=== PATIENT | male | born 1950 | race Caucasian/White ===

== ENCOUNTER 2025-07-05 15:15 | Observation (INO) | payer OTHER, SELFPAY ==
[2025-07-05] VITALS (8 sets, daily range): BP systolic 132–160; BP diastolic 65–107; PULSE 65–66; BMI 27.3
[2025-07-05 08:47] LABS: Hematocrit 40.5 % (39.0-52.0); Hemoglobin 13.1 g/dL (13.0-18.0); Mean Corp Hgb Conc. 32.3 g/dL (33.0-37.0); Mean Corpuscular Volume 92.3 fL (80.0-94.0); Platelet Count 173 10^3/uL (130-400); Red Cell Dist. Width 13.7 % (11.5-14.5)
[2025-07-05 09:05] LABS: ALT (SGPT) 37 U/L (0-50); AST (SGOT) 33 U/L (17-59); Albumin 4.5 g/dl (3.5-5.0); Alkaline Phosphatase 53 U/L (38-126); Blood Urea Nitrogen 28 mg/dl (9-20); Calcium 9.5 mg/dl (8.4-10.2); Carbon Dioxide 22 mmol/L (22-30); Chloride 111 mmol/L (98-107); Estimated Creatinine Clearance 61 ml/min; Glucose 135 mg/dl (70-99); Potassium 4.9 mmol/L (3.5-5.1); Sodium 142 mmol/L (135-145); Total Protein 7.5 g/dl (6.3-8.2); eGFR > 60.00
--- NOTE | 2025-07-05 09:10 | ED.GENMED ---
History of Present Illness
General
Chief Complaint: Dizziness
Source: patient and spouse
Time Seen by Provider: 07/05/25 07:49
History of Present Illness
History of Present Illness:
This patient is a 75-year-old male who presents the emergency department with complaints of dizziness that he noticed when he woke up this morning. He felt perfectly well and he went to bed. He woke at approximately 6:45 AM and when he got up and
out of bed he noticed that his balance was 'off' associated with nausea and diaphoresis. This is not exacerbated or changed with turning of his head or certain positions. He does not noted now while in bed, but even just walking to his room in the
emergency department he noticed that his balance was off. He feels like he is favoring one side and leaning to the right. He is no longer diaphoretic but still feels nauseous. He denies associated numbness, tingling, change in vision, change in
speech, headache, neck pain, chest pain, palpitations, dyspnea, tinnitus, a sense of spinning, or other complaints.
Past History
Past History
ED Past Medical History: Arrthythmia, Hypercholesterolemia, Valvular disease and Other (Gout)
ED Past Surgical History: Cardiac (pacemaker)
Social History
Tobacco: Non-smoker
Alcohol: Occasional
Drug: None
Personal:
Living: with family
Employment: Retired
Phy Exam
Physical Exam
Physical Exam:
GENERAL: Alert , in no apparent distress
EYE: pupils equal and reactive, no photophobia, no nystagmus, EOMI
NECK: Supple, no significant adenopathy.
ENT: o/p clr, mmm.
CARDIAC: Regular rate and rhythm .
LUNGS: Clear breath sounds bilaterally, no acute respiratory distress, no wheezes/rales/rhonchi
ABDOMEN: Soft, without focal tenderness, no r/g, no cvat
NEUROLOGICAL: Alert and oriented, no focal neuro deficits, motor 5 out of 5, sensory intact, cranial nerves II through XII intact, [id number] normal
SKIN: Warm and dry, skin intact.
MUSCULOSKELETAL: No edema, well perfused.
PSYCH: Normal and appropriate interaction.
Course
Orders/Labs/Results
Orders:
Orders
07/05/25 07:48
Electrocardiogram (*1) Urgent
Reason for Study: Vertigo / Dizzy
EKG- Treatment ONCE
07/05/25 08:06
CT Head W/o Iv Contrast Urgent
Comment:
Reason For Exam: dizzy, n
Cardiac Monitoring- Treatment ONCE
Interrogate Pacemaker- Treatment ONCE
Pulse Ox/cont/shift [RESP] Stat
Quantity: 1
07/05/25 08:30
Complete Blood Count/No Diff Urgent
Comprehensive Metabolic Panel Urgent
Troponin I Urgent
07/05/25 10:42
CR Chest - 2 Views Urgent
Comment:
Reason For Exam: pacer eval
07/05/25 14:44
Admit/Transfer Patient As Directed
Co-Sign Provider:
Level of Care: Observation services
Assign to:: Telemetry
Physician / Group: iliana
Diagnosis: tia vs cva
Reason for Telemetry: CVA/TIA
Date to Stop Telemetry: 07/08/25
Time to Stop Telemetry: 11:00
PRN Pain Medication Management As Directed
May give lesser potent ordered pain med per pt: Yes
preference::
Protocol:: Medication orders for pain may be administered in a
manner that supports deferring to patient preference
when the pt is:
- Requesting an ordered lesser potent pain medication.
Least to most potent pain medications are defined
as: acetaminophen < NSAID < tramadol < opioids
(morphine, oxycodone, hydromorphone).
- Requesting a lesser dose of the same medication IF
ORDERED.
- Requesting a less intrusive route of administration
if both routes are prescribed by the provider (PO <
IV).
07/05/25 14:45
Code Status As Directed
Resuscitation Status: Do not resuscitate
Reached after discussion with pt or family/Healthcare POA: Yes
DNR Bracelet Application ONCE
07/05/25 14:46
CT Head & Neck Angio W/wo IV Urgent
Comment:
Reason For Exam: disequilibrium, leaning right
07/05/25 16:45
Case Management Consult ONCE
Case Management Consult: Discharge Planning
Comment: stroke/tia
DIETARY IP CONSULT Routine
Reason for Consult: stroke/TIA
Mail Censor Urgent
Activity As Directed
Activity Level: As Tolerated
NIH Stroke Scale As Directed
Directions: Per protocol
Comment: every shift and with any change in condition or mental status
Neurological Checks As Directed
Frequency: q4h
Additional Instructions:: q4h x 24h upon admission to the floor, then qshift & with any change in condition
and mental status
Patient Education As Directed
Type: Stroke education packet
Comment: provide to patient and family
Pneumatic Compression Sleeves As Directed
Type: Knee high
Vital Signs As Directed
Frequency: Per unit guidelines
Ot Eval And Treat Routine
Pt Eval And Treat Routine
Activity Level: As Tolerated
Speech Therapy Eval & Treat Routine
DX Deep Vein Thrombosis Video Routine
07/06/25 03:39
Cardiovascular Evaluation IN AM
07/08/25 11:00
DC Protocol for Telemetry ONCE
Abnormal Lab Results
07/05/25
08:30
RBC 4.39 L 10^6/uL
(4.70-6.10)
MCHC 32.3 L g/dL
(33.0-37.0)
Chloride 111 H mmol/L
(98-107)
BUN 28 H mg/dl
(9-20)
Glucose 135 H mg/dl
(70-99)
07/05/25 08:30
07/05/25 08:30
Vital Signs
Initial and Last Documented VS:
Initial Vital Signs
Temp Pulse Resp BP Pulse Ox
97.5 F 66 16 134/68 96
07/05/25 07:47 07/05/25 07:47 07/05/25 07:47 07/05/25 07:47 07/05/25 07:47
Last Documented Vital Signs
Temp Pulse Resp BP Pulse Ox
97.4 F 67 18 136/63 96
07/06/25 11:00 07/06/25 11:00 07/06/25 11:00 07/06/25 11:00 07/06/25 11:00
*Pulse Oximetry
SaO2: 97
Oxygen Mode of Delivery: Room air
Patient hypoxic: no
*Critical Care Note
Total Time (30-74mins, 75-104mins- exclusive of procedures): Not Applicable
Update Note
Update Note:
Patient presents to the Emergency Department with _dizziness
Number and Complexity of Problems Addressed at the Encounter
� Chronic conditions affecting care:
� Acute Exacerbation and/or Progression of Chronic Illness:
� Differential Diagnosis includes: But not limited to arrhythmia, BPV, intracerebral bleed, CVA, etc. etc.
Amount and/or Complexity of Data to be Reviewed and Analyzed
� I performed an independent evaluation of and my interpretation is:
EKG: Read by me, atrial paced at normal rate, no acute ischemia
CT:
Xrays:
Laboratory Studies:
Other:
� Review of other/old records reveals:
� Clinical information was obtained by an independent historian: who is bedside
� Prescriptions/Medications Considered but not given:
� Further testing considered but not performed:
Risk of Complications and/or Morbidity or Mortality of Patient Management
� Social determinants of health affecting care:
� Discussion with other providers (PCP, Hospitalists, Consultants, etc): Case discussed specifically with patient's silo man, Dr. Phipps from [place]. He confirms that patient's pacer is MRI compatible. He agrees with
plan to obtain MRI.
� Escalation of care including admission/observation vs risk of discharge considered: 3:00 PM long process and discussions with MRI in order to try to obtain MRI of the brain today. They are unable to 'clear' him to get it done
today based on logistical factors and speaking to team that is familiar with his pacer and states that this will likely be able to be done not until tomorrow. Obviously still have concern regarding a posterior circulation process. Discussed with
neurology and hospitalist, will admit. CTA ordered in meantime. Patient without new findings. He is obviously not a TNKase/IAT candidate given NIH equal to 0. Not a TNK candidate given on anticoagulation.
ED Attending Note
-
Portions of this chart may have been created with voice recognition software.� Occasional wrong word or��sound alike� substitutions may have occurred due to the inherent limitations of voice recognition software.
Discharge Plan
Departure
Patient Disposition: Admit
Date of Disposition: 07/05/25
Time of Disposition: 14:59
Admit to: Telemetry
Presentation/result/management discussed w/ accepting MD/DO: Hospitalist
Condition: Good
Discharge Problem:
Dizziness
Interventions
Interventions:
*Risk Screen - Suicide Last Done: 07/05/25 07:47
*General Assessment Last Done: 07/05/25 16:07
*Neglect/Abuse Screening Last Done: 07/05/25 07:47
*ED- Fall Risk Assessment Last Done: 07/05/25 16:07
*ED COVID-19 Vaccine History Last Done: 07/05/25 16:07
*Nursing Disposition Last Done: 07/05/25 16:45
ED- Neurological Assessment Last Done: 07/05/25 08:35
ED- Cardiac Assessment Last Done: 07/05/25 08:35
ED Swallowing Screen Last Done: 07/05/25 08:35
Discharge Date and Time
Discharge Date/Time: 07/05/25 16:50
[2025-07-05 09:15] LABS: Troponin I < 0.012 ng/ml
--- NOTE | 2025-07-05 14:48 | HPS.HSE ---
Family Physician
-
Family Physician: YOVANI AHMADI
Chief Complaint
-
disequilibirium
History of Present Illness
75-year-old male past medical history of mitral valve repair, aortic regurgitation, paroxysmal atrial fibrillation on Eliquis with pacemaker, gout, presenting with dizziness since waking up this morning. He felt fine when he went to bed. Woke up
at 6:45 AM and when he got out of bed he noticed that his balance was off associate with nausea and diaphoresis. This was not exacerbated by turning his head or positions. His balance continued to be off since then. He felt like he was leaning to
the right. He did have left-sided headache. He denies numbness or tingling, vision changes, change in speech, neck pain, chest pain, palpitations, shortness of breath, ringing in the ears, spinning. Denies any prior episodes of similar symptoms
or history of strokes.
He currently feels substantially better and is able to walk without any difficulty. He continues to have slight headache.
He drinks alcohol occasionally. Denies smoking or drugs.
Medical History
Past Medical History
Past Medical History: Reports Other ( mitral valve repair, aortic regurgitation, paroxysmal atrial fibrillation on Eliquis with pacemaker, gout,)
Past Surgical History: Reports None and Other (mitral valve repair, pacemaker, )
Social History
Tobacco: Non-smoker
Alcohol: Occasional
Drug: None
Family History
Family History: Not pertinent
Allergies / Home Medications
Allergies reflects when Allergies were last updated in [facility].
Home Medications with original date entered in [facility]
Allergy/Medication List:
Allergies
Allergy/AdvReac Type Severity Reaction Status Date / Time
No Known Allergies Allergy Unverified 04/18/19 00:27
Review of Systems
-
History Source: Patient
A 12 point ROS was completed and negative except as noted: Yes
Constitutional: Reports No Symptoms
EENT: Reports No Symptoms
Respiratory: Reports No Symptoms
Cardiac: Reports No Symptoms
Abdomen/GI: Reports No Symptoms
: Reports No Symptoms
Musculoskeletal: Reports No Symptoms
Skin: Reports No Symptoms
Neurological: Reports No Symptoms
Endocrine: Reports No Symptoms
Hematologic/Lymphatic: Reports No Symptoms
Psych: Reports No Symptoms
Physical Exam
Vital Signs
Vital Signs
Temp Pulse Resp BP Pulse Ox
97.5 F 65 16 140/67 97
07/05/25 07:47 07/05/25 10:35 07/05/25 10:35 07/05/25 10:35 07/05/25 10:35
Physical Exam
General: Well Developed, Well Nourished and No Apparent Distress
HEENT: NormoCephalic, Moist mucous membranes and Atraumatic
Respiratory: Clear
Cardiac: S1/S2 and Regular Rhythm; No Murmur or Rub
GI: Soft, Non Tender, Non Distended and Normal Bowel Sounds; No Organomegaly
Rectal: Deferred by Provider
Musculoskeletal: No Clubbing, No Cyanosis and No Edema
Skin: No Rash
Neuro: Nonfocal/grossly intact
Laboratory Results
-
07/05/25 08:30
07/05/25 08:30
Laboratory Results
Total Bilirubin 0.7 mg/dl (0.2-1.3) 07/05/25 08:30
AST 33 U/L (17-59) 07/05/25 08:30
ALT 37 U/L (0-50) 07/05/25 08:30
Alkaline Phosphatase 53 U/L (38-126) 07/05/25 08:30
Troponin I < 0.012 ng/ml 07/05/25 08:30
Data Reviewed
-
Lab Data: Labs Reviewed by me
Old Records: Reviewed
Impression/Plan
-
IMPRESSION:
PLAN:
# Acute disequilibrium/ataxia concerning for TIA versus CVA
-Symptoms substantially improved only with slight headache currently
- CT head shows no acute abnormality, small focus of encephalomalacia within the anterior left frontal lobe
- Check CTA head and neck, MRI brain
-Continue Eliquis
-Continue statin
- Neurology consulted
History of aortic regurgitation
History of mitral valve repair
Paroxysmal atrial fibrillation with pacemaker
- Continue Eliquis
- Pacemaker being interrogated
Gout
- Continue allopurinol
DNR/DNI
DVT prophylaxis�Eliquis
Regular diet
--- NOTE | 2025-07-05 15:23 | CON.NEURO ---
Neuro Assessment/Plan
Assessment
Acute onset diaphoresis and dizziness
Differential diagnosis includes posterior circulation stroke, made more likely by normal troponin levels. Differential would also include vasovagal syncope
Plan
Check MRI of brain when possible
Check CT angiogram of head and neck to determine if there is focal stenosis or occlusion of the arterial system which might have produced symptomatology
Continue apixaban
Follow lipid profile
Maintain rosuvastatin with adjustment based on LDL results, goal less than 70
Rehabilitation evaluations
Orthostatic blood pressures
Will follow
Consultation
Order
Date of Consultation: 07/05/25
Requesting Provider: Emergency department provider
Reason for Consult: Dizziness
Subjective/Objective
Subjective Data
Date of Service: July 05, 2025
Right handed
Patient presented to this hospital's emergency department after experiencing sudden onset of sense of dizziness and unsteadiness. This was associated with a sense of nausea and diaphoresis which subsequently resolved after approximately 45 minutes.
The patient did not experience any additional symptoms at that time. He has had no prior episodes which were similar.
Objective Data
Vital Signs
Temp Pulse Resp BP Pulse Ox
36.4 C 65 16 140/67 97
07/05/25 07:47 07/05/25 10:35 07/05/25 10:35 07/05/25 10:35 07/05/25 10:35
Lab Results
07/05/25 08:30
07/05/25 08:30
Sodium 142 mmol/L (135-145) 07/05/25 08:30
Potassium 4.9 mmol/L (3.5-5.1) 07/05/25 08:30
BUN 28 mg/dl (9-20) H 07/05/25 08:30
Glucose 135 mg/dl (70-99) H 07/05/25 08:30
Calcium 9.5 mg/dl (8.4-10.2) 07/05/25 08:30
Patient Allergies
No Known Allergies Allergy (Unverified 04/18/19 00:27)
Review of Systems
-
History Source: Patient
All other systems: Reviewed and negative
EENT: Negative Swallowing Difficulty
Respiratory: Negative Trouble Breathing
Cardiac: Negative Chest Pain
Abdomen/GI: Negative Incontinence of Stool
Genitourinary: Negative Incontinence
Musculoskeletal: Negative Back Pain or Neck Pain
Neuro: Headache; Negative Dizzy
Physical Exam
-
General: No Apparent Distress and Appears Stated Age
Eyes: OU Absent Papilledema, Round OU, [place] Conjunctivae and No Ptosis
HEENT: Anicteric and Moist Mucous Membranes
Neck: Full Range of Motion
Respiratory: No Dyspnea
Cardiac: No JVD
GI: Non-distended
Skin: Unremarkable
Extremities: No Clubbing, No Cyanosis and No Edema
Psych: Intact Judgement/Insight
Extended Neurological Exam
Mood & Affect: Mood Unremarkable and Affect Unremarkable
Attention Span & Concentration: Awake, Alert, Interactive and No Difficulty with 2 Step Request
Memory: Unremarkable
Tremor: Hand Tremor Absent and Head Tremor Absent
Speech: Quality Unremarkable and Quantity Unremarkable
Cranial Nerve II: Left Eye: Pupillary Reactivity Unremarkable, Pupillary Size Unremarkable and Visual Claudio Intact
Cranial Nerve II: Right Eye: Pupillary Reactivity Unremarkable, Pupillary Size Unremarkable and Visual Claudio Intact
Cranial Nerves III, IV, : Extraocular Movement: Extraocular Movement Full in all Directions
Cranial Nerve VII: Facial Symmetry: Normal Facial Symmetry
Cranial Nerve VIII: Hearing: Unremarkable Hearing to Normal Conversational Volume
Cranial Nerves IX, X: Palate Movement: Palate Elevation Symmetric
Cranial Nerve XI: Shoulder Shrug: Unremarkable
Cranial Nerve XII: Tongue Protusion: Midline
Muscle Strength, Overall: Full Throughout
Muscle Bulk & Tone: Bulk Unremarkable and Tone Unremarkable
Pronator Drift: No Drift in Upper Extremities
Deep Tendon Reflexes: Unremarkable Throughout
Touch Sensation: Unremarkable
Coordination: Dctqya-ocue-ghgvpf Testing Unremarkable and Xkws-Onxr-Fcly movements intact bilaterally
Babinski Sign: Absent Bilaterally
Data Reviewed
-
CT Head: Report Reviewed
Labs: Report Reviewed
Lipid Profile: Ordered
Reviewed with: Physician, Patient and Family
Old Records: Summarized
Medications
-
Home Medications
�Medication �Instructions �Recorded
allopurinol 300 mg tablet 300 mg PO DAILY 07/05/25
apixaban 5 mg tablet (Eliquis) 5 mg PO BID 07/05/25
atenolol 100 mg tablet 100 mg PO DAILY 07/05/25
rosuvastatin 10 mg tablet (Crestor) 10 mg PO DAILY 07/05/25
Past History
Past History
ED Past Medical History: Arrthythmia (Afib), Hypercholesterolemia, Valvular disease and Other (Gout, poison jamar)
ED Past Surgical History: Cardiac (pacemaker)
Social History
Tobacco: Non-smoker
Alcohol: Occasional
Drug: None
Personal:
Living: with family
Employment: Retired
Family History
Family History: Other (reviewed and non-contributory)
[2025-07-05 16:40] LABS: HDL Cholesterol 32 mg/dl; LDL Cholesterol, Calculated 66 mg/dl; Very Low Density Lipoprotein 19 mg/dl (0-30)
--- NOTE | 2025-07-05 16:43 | CM ---
Met with patient at bedside in the ED
WARREN form explained; signed @ 1630
His family physician is located in [place]; if a PCP is needed, there is a local practice that he use to go; offered to provide information for Primary Resident Practice Office in [place]
Lives w/; multilevel home; 1 step to enter; 12-13 steps between floors; railings present; his 2nd floor bath has shower stall; powder room 1st floor
PLOF: reported he was independent with ambulation, stairs and ADLs; Retired; drives. Has a home on [place], [place] (location of his Family Physician)
No DME
NO history of SNF or Home Health utilization
will transport home
Plan: Discharge to home when medically stable; Case Management will monitor and coordinate needs/service if identified
--- NOTE | 2025-07-05 17:15 | PTCARENOTE ---
Pt transferred from ED. Pt ambulated into room with assistance. Pt AAOX1, able to make needs known, VSS. Pt oriented to unit, call stewart within reach. Will continue with current plan.
--- NOTE | 2025-07-05 19:26 | PTCARENOTE ---
Rn transplant coordinator- Admission questions completed via phone interview.
[2025-07-05] MEDS: ELIQUIS 5 MG PO (19:33)
[2025-07-06 03:06] VITALS: BP 123/59
--- NOTE | 2025-07-06 03:21 | W.PN.UPDATE ---
Update Note
Progress Note Update
Patient had long episode of 70 beat of v tach, asymptomatic.
Current vital signs temp 97.8, hr64, BP 123/59, RR 19, SPO2 94%.
--- NOTE | 2025-07-06 03:29 | PTCARENOTE ---
Patient had a 70 beats of VTach. RN assessed patient, patient denied chest pain or shortness of breath. Heart rate was 64, respirations 18, BP 123/59, and temperature was 97.8. EKG done, patient was A paced. ENGAGEMENT MGR Christos made aware. Orders placed for
morning labs and a cardiology consult. Labs to be collected now per ENGAGEMENT MGR.
[2025-07-06 03:56] LABS: Hematocrit 40.8 % (39.0-52.0); Hemoglobin 13.3 g/dL (13.0-18.0); Mean Corp Hgb Conc. 32.6 g/dL (33.0-37.0); Mean Corpuscular Volume 90.5 fL (80.0-94.0); Platelet Count 175 10^3/uL (130-400); Red Cell Dist. Width 13.7 % (11.5-14.5)
[2025-07-06 04:25] LABS: Blood Urea Nitrogen 22 mg/dl (9-20); Calcium 9.8 mg/dl (8.4-10.2); Carbon Dioxide 26 mmol/L (22-30); Chloride 108 mmol/L (98-107); Estimated Creatinine Clearance 67 ml/min; Glucose 99 mg/dl (70-99); HDL Cholesterol 32 mg/dl; LDL Cholesterol, Calculated 62 mg/dl; Magnesium 2.3 mg/dl (1.6-2.3); Potassium 4.5 mmol/L (3.5-5.1); Sodium 142 mmol/L (135-145); Very Low Density Lipoprotein 22 mg/dl (0-30); eGFR > 60.00
[2025-07-06 05:19] LABS: Hepatitis C Antibody Negative (Negative)
[2025-07-06 07:00] VITALS: BP 140/66
[2025-07-06] MEDS: CRESTOR 10 MG PO (08:50)
[2025-07-06] MEDS: ZYLOPRIM 300 MG PO (08:50)
[2025-07-06] MEDS: TENORMIN 100 MG PO (08:50)
[2025-07-06] MEDS: ELIQUIS 5 MG PO (08:50)
[2025-07-06 09:59] VITALS: BP 122/74; O2SAT 98
[2025-07-06 10:05] VITALS: BP 122/64; PULSE 67; O2SAT 96
--- NOTE | 2025-07-06 10:10 | PTOTSP ---
pt currently requires no assistance to complete simple ADLs, functional transfers, ambulation. pt demonstrates no overt deficits with self care, UE ROM or strength. no acute OT needs identified at this time, will sign off.
[2025-07-06 11:00] VITALS: BP 136/63
--- NOTE | 2025-07-06 11:48 | W.PN.NEURO.1 ---
Today's Communication / Plan
-
Check MRI of brain when possible
Check CT angiogram of head and neck to determine if there is focal stenosis or occlusion of the arterial system which might have produced symptomatology
Continue apixaban
Maintain rosuvastatin with adjustment based on LDL results, goal less than 70
Rehabilitation evaluations
Orthostatic blood pressures; goal of normotension
Neuro Assessment/Plan
Assessment
Acute onset diaphoresis and dizziness
Differential diagnosis includes posterior circulation stroke, made more likely by normal troponin levels.
Orthostatic blood pressures x 1 have not been revealing
Plan
Check MRI of brain when possible
Check CT angiogram of head and neck to determine if there is focal stenosis or occlusion of the arterial system which might have produced symptomatology
Continue apixaban
Maintain rosuvastatin with adjustment based on LDL results, goal less than 70
Rehabilitation evaluations
Orthostatic blood pressures
Will follow as outpatient
Subjective/Objective
Subjective Data
Date of Service: July 06, 2025
Objective Data
Vital Signs
Temp Pulse Resp BP Pulse Ox
36.4 C 65 18 140/66 97
07/06/25 07:00 07/06/25 07:00 07/06/25 07:00 07/06/25 07:00 07/06/25 07:00
Lab Results
07/06/25 03:39
07/06/25 03:39
Sodium 142 mmol/L (135-145) 07/06/25 03:39
Potassium 4.5 mmol/L (3.5-5.1) 07/06/25 03:39
BUN 22 mg/dl (9-20) H 07/06/25 03:39
Glucose 99 mg/dl (70-99) 07/06/25 03:39
Calcium 9.8 mg/dl (8.4-10.2) 07/06/25 03:39
LDL Cholesterol, Calc 62 mg/dl 07/06/25 03:39
Patient Allergies
No Known Allergies Allergy (Unverified 04/18/19 00:27)
Data Reviewed
-
CT Head: Report Reviewed and Image Reviewed
Labs: Report Reviewed
Reviewed with: Physician
Old Records: Summarized
Past History
Past History
ED Past Medical History: Arrthythmia (Afib), Hypercholesterolemia, Valvular disease and Other (Gout, abnormal CT head)
ED Past Surgical History: Cardiac (pacemaker)
Social History
Tobacco: Non-smoker
Alcohol: Occasional
Drug: None
Personal:
Living: with family
Employment: Retired
Family History
Family History: Other (reviewed and non-contributory)
Medications
-
Medications:
Generic Name Dose Route Start Last Admin
Trade Name Freq PRN Reason Stop Dose Admin
Allopurinol 300 mg 07/06/25 08:00 07/06/25 08:50
Allopurinol 300 Mg Tablet PO 08/03/25 07:59 300 mg
DAILY PINKY Administration
Apixaban 5 mg 07/05/25 20:00 07/06/25 08:50
Apixaban (Eliquis) 5 Mg Tablet PO 08/02/25 19:59 5 mg
BID PINKY Administration
Atenolol 100 mg 07/06/25 08:00 07/06/25 08:50
Atenolol 50 Mg Tablet PO 08/03/25 07:59 100 mg
DAILY PINKY Administration
Rosuvastatin Calcium 10 mg 07/06/25 08:00 07/06/25 08:50
Rosuvastatin (Crestor) 10 Mg Tablet PO 08/03/25 07:59 10 mg
DAILY PINKY Administration
Sodium Chloride 0 flush 07/05/25 19:00
Sodium Chloride 0.9% (Flush) Syringe IV 08/02/25 18:59
PER PROTOCOL PINKY
[2025-07-06 13:15] VITALS: BP 115/61; BP 119/58; BP 120/56; PULSE 62; PULSE 66
--- NOTE | 2025-07-06 13:27 | CM ---
CM reviewed chart, patient seen bedside. Patient for discharge today, no needs. CM reviewed therapy recommendations- no skilled need. CM will continue to follow for all discharge planning needs.
Plan; home no needs
--- NOTE | 2025-07-06 13:59 | PTCARENOTE ---
Patient leaving prior to getting information regarding outpatient follow up. Patient contacted via phone by this RN and updated. Patient will follow up with Dr. Sotomayor regarding MRI results, and establish PCP with [facility].
--- NOTE | 2025-07-06 14:41 | W.PN.HOSP.TC ---
Today's Communication/Plan
-
d/c home
Assessment / Plan
Assessment / Plan
Acute disequilibrium/ataxia
Possible TIA
-Symptoms resolved completely
- CT head shows no acute abnormality, small focus of encephalomalacia within the anterior left frontal lobe
- CTA head and neck did not show any critical narrowing/aneurysm
-MRI brain ordered although patient pacemaker cannot be verified. Discussed with patient and patient opted to have outpatient MRI done.
-Discussed with neurology recommended continuation of current regimen of medication.
History of aortic regurgitation
History of mitral valve repair
Paroxysmal atrial fibrillation with pacemaker
- Continue Eliquis
- Pacemaker being interrogated
Gout
- Continue allopurinol
DNR/DNI
DVT prophylaxis�Eliquis
More than 30 minutes spent in discharge including
Final examination of the patient
Summarizing hospital stay
Instructions for continuing care to all relevant caregivers
Preparation of discharge records, prescriptions, and referral forms
Total time spent (in minutes): 38 mins
Anticipated Discharge: Today
Subjective/Interval History
-
Date of Service: July 06, 2025
No neurological deficit
No new issues overnight
Objective Data
-
Labs:
Laboratory Results
07/06/25
03:39
WBC 7.0
Hgb 13.3
Hct 40.8
Plt Count 175
Sodium 142
Potassium 4.5
Chloride 108 H
Carbon Dioxide 26
BUN 22 H
Creatinine 1.0
Glucose 99
Calcium 9.8
Vital Signs:
Vital Signs
Temp Pulse Resp BP Pulse Ox
97.4 F 67 18 136/63 96
07/06/25 11:00 07/06/25 11:00 07/06/25 11:00 07/06/25 11:00 07/06/25 11:00
I&O
07/05/25 07/06/25 07/07/25
06:59 06:59 06:59
Intake Total 120 / 120
Balance 120 / 120
Review of Systems
-
Respiratory: Reports No Symptoms
Cardiac: Reports No Symptoms
Abdomen/GI: Reports No Symptoms
Physical Exam
-
General: Negative Appears in Distress
HEENT: Negative Oxygen
Neuro: Awake, Alert, Oriented and No Motor Deficits
--- NOTE | 2025-07-06 15:41 | W.DCSUMMARY ---
Discharge Summary
Discharge Data
Date of Admission: 07/05/25
Date of Discharge: 07/06/25
-
Pending Results: No
Hospital Course
Discharging Physician : Dr Jimmie Pinzon
Disposition : Home
Primary care physician : Dr Yovani Hubbard
Principal Discharge diagnosis :
Transient ischemic attack
Chronic Discharge diagnosis :
History of aortic regurgitation
History of mitral valve repair
Paroxysmal atrial fibrillation with pacemaker
Gout
Hospital Course :
Patient is a 75-year-old male with no mentioned past medical history came to ER with new onset of balance issues/ataxia. No focal neurological weakness was noted on exam. Patient had an emergent CT head in the ER which did not show any acute
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 CTA head and neck was done which ruled out any critical narrowing/aneurysm. Neurology was consulted who recommended patient to be have a follow-up MRI brain. Unfortunately patient
pacemaker was not able to be verified for MRI compatibility and after discussion with neurology and patient patient agreed to have the MRI brain without contrast done outpatient basis. Neurology recommended for patient to continue on home regimen
of medication at this point. Patient was evaluated by physical therapy and was cleared for home level discharge.
Important imaging findings :
None
Procedure findings :
None
Discharge Plan
-
Patient Disposition: Home (Routine Discharge)
Discharge Diagnosis/Procedures: TIA episode, posterior circulation
Condition: Fair
Diet: Low Cholesterol
Activity: As tolerated
Driving Restrictions: As prior to admission
Bathing Restrictions: OK to Shower
Referrals:
YOVANI HUBBARD [Other] - in one week
[facility] [Outside, Family Practice]
Nehemias Sotomayor MD [Active, Neurology]
Prescriptions:
New
(DME) MRI Brain without contrast
See Rx Instructions .Route .MEDSUPPLY Qty: 1 0RF
Rx Instructions:
Dx : TIA episode
Continued
allopurinol 300 mg Tablet
300 mg PO DAILY
atenolol 100 mg Tablet
100 mg PO DAILY
Crestor 10 mg Tablet
10 mg PO DAILY
Eliquis 5 mg Tablet
5 mg PO BID
Discharge Orders:
Discharge Patient (As Directed); Ordered 07/06/25
Ordered By: Jimmie Pinzon
Discharge Date and Time
Discharge Date/Time: 07/06/25 13:31
Print Language: SLOVENIAN
== END 2025-07-06 13:31 | disposition home or self-care (01) ==
LOC: 4 WEST ACU 15:15
PROVIDERS: Nurse Practitioner Family; ADMITTING PHYSICIAN Hospitalist; ATTENDING PHYSICIAN Hospitalist; EMERGENCY PHYSICIAN Emergency Medicine; OTHER PHYSICIAN Psychiatry & Neurology Neurology
DX: G45.9 Transient cerebral ischemic attack, unspecified (principal); R27.0 Ataxia, unspecified; R11.0 Nausea; R61 Generalized hyperhidrosis; M10.9 Gout, unspecified; E78.00 Pure hypercholesterolemia, unspecified; R94.31 Abnormal electrocardiogram [ECG] [EKG]; I35.1 Nonrheumatic aortic (valve) insufficiency; I48.0 Paroxysmal atrial fibrillation; G93.89 Other specified disorders of brain; Z66 Do not resuscitate; Z79.01 Long term (current) use of anticoagulants; Z79.899 Other long term (current) drug therapy; Z95.0 Presence of cardiac pacemaker
CPT/HCPCS: 70450; 70496; 70498; 71046; 80048; 80053; 80061; 83735; 84484; 85027; 86803; 93005; 94760; 97161; 97166; 99285; G0378; Q9967

== ENCOUNTER → 2025-08-06 14:37 | Outpatient (REF) | payer MEDICARE, OTHER, SELFPAY | LOC: RCS 14:37 | PROVIDERS: ATTENDING PHYSICIAN Thoracic Surgery (Cardiothoracic Vascular Surgery); OTHER PHYSICIAN Internal Medicine Cardiovascular Disease | DX: I35.1 Nonrheumatic aortic (valve) insufficiency (principal) | CPT/HCPCS: 93306 ==